=== PATIENT | male | born 1950 | race Caucasian/White ===

== ENCOUNTER → 2017-10-13 | Outpatient (CLI) | payer OTHER | LOC: FIMAGING 13:53 | PROVIDERS: ATTEND Psychiatry & Neurology Neurology | DX: F60.9 Personality disorder, unspecified (principal) ==

== ENCOUNTER 2018-05-04 11:38 | Emergency (ER) | payer BC ==
--- NOTE | 2018-05-04 11:55 | EDPHY ---
H & P Stated Complaint: R eye irritated 3-4 days;vision worse today;cataract surg~ 3wks ago Time Seen by Provider: 05/04/18 11:55 - Personal History Current Tetanus Diphtheria and Acellular Pertussis (TDAP): Yes - Medical/Surgical History Hx Asthma: No Hx Chronic Respiratory Disease: No Hx Diabetes: No Hx Cardiac Disease: No Hx Renal Disease: No Hx Cirrhosis: No Hx Alcoholism: No Hx HIV/AIDS: No Hx Splenectomy or Spleen Trauma: No Other PMH: Hypothyroidism, high cholesterol, patella tendon repair R knee, sharpnel legs, and thigh and arm. - Social History Smoking Status: Former smoker Constitutional: Initial Vital Signs Temperature (C) 36.6 C 05/04/18 11:44 Heart Rate 65 05/04/18 11:44 Respiratory Rate 16 05/04/18 11:44 Blood Pressure 121/69 H 05/04/18 11:44 O2 Sat (%) 96 05/04/18 11:44 O2 Delivery Mode Room Air Allergies/Adverse Reactions: No Known Allergies Allergy (Verified 05/04/18 11:44) Home Medications: Medication Instructions Recorded Aspirin 81mg (*) 06/01/16 Levothyroxine 06/01/16 Lipitor 06/01/16 Zetia 06/01/16 Medical Decision Making ED Course/Re-evaluation: CHIEF COMPLAINT: Decreasing vision right eye and irritation following cataract surgery HISTORY OF PRESENT ILLNESS: The patient is a 67 y/o male 3 weeks status post cataract surgery with Dr. Bowser who arrives with his complaining of worsening vision in his right eye over the last week with associated itching sensation. Postoperatively, he reports his vision was 20/15. A week later his vision seemed worse at 20/25 and today he thinks it's 20/40 or worse. She has the associated sensation of something "very scratchy" along the right side of his right eye. No fever, redness, swelling, or other complaints. REVIEW OF SYSTEMS: A comprehensive 10 system review of systems is otherwise negative aside from elements mentioned in the history of present illness and medical decision making. PHYSICAL EXAM: HR, BP, O2 Sat, RR. Temp noted General Appearance: Alert, well hydrated, appropriate, and non-toxic appearing. Head: Atraumatic without scalp tenderness or obvious injury Eyes: Visual Acuity: Noted from Nurse's notes. 20/25 right eye. Pupils: PERRLA, EOMI, no nystagmus, no trauma, no injection. Lids: No edema or swelling Skin: No proptosis, no periorbital erythema or swelling, no vesicles Conjunctivae: Not injected, not icteric, no discharge Ears: Clear bilaterally, no perforation, normal landmarks Nose: Atraumatic, no rhinorrhea, clear. Throat: Mucus membranes moist. Neck: Supple. Respiratory: No distress. Cardiovascular: Good capillary refill all extremities. Musculoskeletal: Normal active ROM of all extremities, atraumatic. Neurological: Alert, appropriate, and interactive. Nonfocal. No nystagmus. Skin: No rashes, good turgor, no nodules on palpation. Past medical history: Hypothyroidism, high cholesterol, shrapnel legs and thigh and arm. Past surgical history: Cataract surgery [address] Bowser; patella tendon repair R knee, Family history: Noncontributory Social history: at bedside. Lives in [place]. Employed. DIFFERENTIAL DIAGNOSIS: The differential diagnosis for the patient's symptoms included but was not limited to complication from cataract, foreign body, allergies. MEDICAL DECISION MAKING: This is a 67 y/o male 3 weeks s/p right eye cataract surgery who presents complaining of worsening right eye vision and itching along the outside of his right eye over the last 2 weeks. Vision here is 20/25 in his right eye. No significant finding on exam. 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 [id number]: We have been trying to contact Dr. Bowser for over an 1.5 hour with no response. Will contact Dr. Spann. Consulted with Dr. Spann, ophtho. She will see patient in her office today at 2:30 for evaluation. Discussed this plan with the patient and answered his questions. He will be discharged directly to her office. Departure - Departure Disposition: Home, Routine, Self-Care Clinical Impression: Cataract Qualifiers: Cataract type: other Laterality: right Qualified Code(s): H26.8 - Other specified cataract Condition: Good Instructions: Cataract Removal (DC) Additional Instructions: Go directly to Dr. Spann's office across the street. She will see you at 2:30 for evaluation of your symptoms. Referrals: [facility] [Primary Care Provider] - As per Instructions Jojo Spann MD [Non Staff Provider (MD)] - As per Instructions Report Scribed for: Frankie Khoury Report Scribed by: Hetal Guadarrama Date of Report: 05/04/18 Time of Report: 12:12
[2018-05-04 13:52] VITALS: BP 118/74
== END 2018-05-04 13:52 | disposition home or self-care (01) ==
DX: H59.091 Other disorders of the right eye following cataract surgery (principal); H53.8 Other visual disturbances